=== PATIENT | female | born 1965 | race Caucasian/White ===

== ENCOUNTER 2017-08-17 15:19 | Emergency (ER) | payer BC, MEDICAID ==
[2017-08-17 17:44] LABS: ADD MAN DIFF? NO
[2017-08-17 17:46] LABS: BASOPHIL # 0.1 10^3/ul (0.0-0.1); BASOPHILS % 0.7 % (0.0-2.0); EOSINOPHILS # 0.1 10^3/ul (0.0-0.5); EOSINOPHILS % 1.3 % (0.0-7.0); HEMOGLOBIN 11.9 g/dl (12.0-16.0); LYMPHOCYTES # 1.7 10^3/ul (0.8-2.9); LYMPHOCYTES % 22.4 % (15.0-51.0); MEAN CORPUSCULAR HEMOGLOBIN 26.4 pg (29.0-33.0); MEAN CORPUSCULAR HGB CONC 32.2 g/dl (32.0-37.0); MEAN CORPUSCULAR VOLUME 82.2 fl (82.0-101.0); MEAN PLATELET VOLUME 10.7 fl (7.4-10.4); MONOCYTE # 0.6 10^3/ul (0.3-0.9); MONOCYTES % 7.9 % (0.0-11.0); NEUTROPHIL # 5.1 10^3/ul (1.6-7.5); NEUTROPHILS % 67.4 % (39.0-77.0); PLATELET COUNT 239 10^3/UL (140-415); RED CELL DISTRIBUTION WIDTH 15.9 % (11.5-14.5)
[2017-08-17 17:46] LABS: WHITE BLOOD COUNT 7.5 10^3/ul (4.8-10.8)
[2017-08-17 17:57] LABS: ADD UMIC YES; UR ASCORBIC ACID NEGATIVE (NEGATIVE); UR BILIRUBIN (Dip) NEGATIVE (NEGATIVE); UR BLOOD (Dip) 1+ mg/dL (NEGATIVE); UR CLARITY CLEAR (CLEAR); UR COLOR STRAW (YELLOW); UR GLUCOSE (Dip) NEGATIVE (NEGATIVE); UR KETONES (Dip) NEGATIVE (NEGATIVE); UR LEUKOCYTE ESTERASE (Dip) TRACE Leu/ul (NEGATIVE); UR NITRITE (Dip) NEGATIVE (NEGATIVE); UR RBC 1 /HPF (0-5); UR SPECIFIC GRAVITY (Dip) 1.009 (1.003-1.030); UR TOTAL PROTEIN (Dip) NEGATIVE (NEGATIVE); UR UROBILINOGEN (Dip) NEGATIVE (NEGATIVE); UR WBC 0 /HPF (0-5)
[2017-08-17 18:09] LABS: ANION GAP 15 (8-16); BLOOD UREA NITROGEN 16 mg/dl (7-20); CARBON DIOXIDE 25 mmol/L (21-31); CHLORIDE 105 mmol/L (97-110); CREATININE 0.64 mg/dl (0.44-1.00); GLUCOSE 101 mg/dl (70-220); POTASSIUM 4.2 mmol/L (3.5-5.1); SODIUM 141 mmol/L (135-144)
[2017-08-17 18:27] LABS: TROPONIN-I < 0.012 ng/ml (0.00-0.12)
== END 2017-08-17 19:18 | disposition home or self-care (01) ==
LOC: FTE 15:19
DX: R07.89 Other chest pain (principal); I10 Essential (primary) hypertension
CPT/HCPCS: 71046; 80048; 81001; 84484; 85025; 93005; 99285-25

== ENCOUNTER 2017-11-17 19:09 | Emergency (ER) | payer BC ==
[2017-11-17] MEDS: SILVER NITRATE SWAB TOP (21:05)
== END 2017-11-17 21:48 | disposition home or self-care (01) ==
LOC: FTE 19:09
DX: S89.91XA Unspecified injury of right lower leg, initial encounter (principal); I83.893 Varicose veins of bilateral lower extremities with other complications; I10 Essential (primary) hypertension; W26.8XXA Contact with other sharp object(s), not elsewhere classified, initial encounter; Y92.9 Unspecified place or not applicable
CPT/HCPCS: 12001; 99282-25